=== PATIENT | female | born 1975 | race Caucasian/White ===

== ENCOUNTER → 2017-06-02 12:18 | Observation (INO) ==
[2017-06-02 11:25] LABS: Basophils # 0.1 K/mcL (0.0-0.2); Basophils % 0.7 %; Eosinophils # 0.1 K/mcL (0.0-0.6); Eosinophils % 0.7 %; Hematocrit 33.1 % (35.3-44.9); Hemoglobin 10.2 g/dL (11.5-15.4); Immature Granulocytes % 4.9 % (0-4); Lymphocytes # 1.6 K/mcL (0.6-4.6); Lymphocytes % 15.3 %; Mean Corpuscular HGB Conc 30.8 g/dL (31.6-35.5); Mean Corpuscular Hemoglobin 25.5 pg (28.0-33.3); Mean Corpuscular Volume 82.8 fL (83.0-100.0); Mean Platelet Volume 10.1 fL (9.4-12.4); Monocytes # 0.8 K/mcL (0.0-1.3); Monocytes % 7.1 %; Neutrophils # 7.7 K/mcL (1.6-8.9); Nucleated Red Blood Cells 0.3 /100 WBC (0); Platelet Count 307 K/mcL (140-400); Red Cell Distribution Width 18.3 % (11.5-14.5); Segmented Neutrophils % 71.3 %
[2017-06-02 11:44] LABS: Alanine Aminotransferase 9 Units/L (7-52); Aspartate Amino Transferase 15 Units/L (13-39); BUN/Creatinine Ratio 11 (6-26); Blood Urea Nitrogen 4 mg/dL (6-20); Lactate Dehydrogenase 142 Units/L (140-271); Uric Acid 4.3 mg/dL (2.3-7.6); eGFR For African Americans > 60 (> 60); eGFR For Non-African Americans > 60 (> 60)
--- NOTE | 2017-06-02 12:03 | OB/GYN Progress Note ---
Date of Encounter: 06/02/17 Time of Encounter: 12:01 - Assessment and Plan (1) 30 weeks gestation of Current Visit: Yes Status: Acute FHT reassiring for GA (2) Headache above the eye region Current Visit: Yes Status: Acute Headache has now resolved. PIH labs normal. BP normal. Discharge home with precautions. Subjective - Subjective Interval history: 41 year-old at 30w4d with c/o headache and nausea this am that has now resolved. She reports she took her blood pressure at work when she was feeling bad and it was 120's/101. She denies any contractions, leaking, bleeding or other complaints. Good FM. Antepartum ROS: movement normal, no loss of fluid, no vaginal bleeding, no contractions Objective - Vital Signs Vital Signs: Intake and Output 06/01/17 06/02/17 06/02/17 23:59 07:59 15:59 Other: Weight 72.2 kg Patient Weight 06/02/17 23:59 Weight 72.2 kg - Exam FHR: category 1 FHR comments: FHT reassuring for GA Auscultation: bilateral: normal Abdomen: Present: soft, gravid Uterus: Present: normal - Labs Labs: Abnormal lab results Hgb 10.2 g/dL (11.5-15.4) L 06/02/17 10:46 Hct 33.1 % (35.3-44.9) L 06/02/17 10:46 MCV 82.8 fL (83.0-100.0) L 06/02/17 10:46 MCH 25.5 pg (28.0-33.3) L 06/02/17 10:46 MCHC 30.8 g/dL (31.6-35.5) L 06/02/17 10:46 RDW 18.3 % (11.5-14.5) H 06/02/17 10:46 Immature Gran % 4.9 % (0-4) H 06/02/17 10:46 Nucleated RBCs/100 WBC 0.3 /100 WBC (0) H 06/02/17 10:46 BUN 4 mg/dL (6-20) L 06/02/17 10:46 Creatinine 0.35 mg/dL (0.60-1.20) L 06/02/17 10:46
[2017-06-02 12:09] LABS: Protein/Creatinine Ratio,Urine 0.55 mg/mg (0.00-0.20)
[2017-06-02 12:19] LABS: Amphetamine Screen,Urine Negative ng/mL (Cutoff=1000); Barbiturate Screen,Urine Negative ng/mL (Cutoff=200); Benzodiazepines Screen,Urine Negative ng/mL (Cutoff=200); Cannabinoid Screen,Urine Negative ng/mL (Cutoff = 50); Cocaine Screen,Urine Negative ng/mL (Cutoff= 300); Opiate Screen,Urine Negative ng/mL (Cutoff=300); Phencyclidine Screen,Urine Negative ng/mL (Cutoff=25)
== END | disposition home or self-care (01) ==
LOC: 1NENULAB
PROVIDERS: ADMIT Registered Nurse; ATTEND Registered Nurse

== ENCOUNTER 2017-07-29 14:40 | Inpatient (IN) ==
[2017-07-29] MEDS ORDERED: Ondansetron 4 MG/2 ML VIAL IVP PRN (14:50)
[2017-07-29] MEDS ORDERED: Metoclopramide 10 MG/2 ML VIAL IVP PRN (14:50)
[2017-07-29] MEDS ORDERED: Famotidine 20 MG/2 ML VIAL IVP PRN (14:50)
[2017-07-29] MEDS ORDERED: *HR* Nalbuphine 10 MG/ML AMPUL IVP PRN (14:50)
[2017-07-29] MEDS ORDERED: Naloxone 0.4 MG/ML INJ IVP PRN (14:50)
[2017-07-29] MEDS ORDERED: Oxytocin 20 units/ LR 1000 mL 20 UNIT/1,000 ML BAG IVC SCH ×2 (15:00→20:17)
[2017-07-29] MEDS ORDERED: Ringers Solution, Lactated 1,000 ML IVC SCH (15:00)
[2017-07-29 15:21] LABS: Basophils # 0.1 K/mcL (0.0-0.2); Basophils % 0.6 %; Eosinophils # 0.1 K/mcL (0.0-0.6); Eosinophils % 0.6 %; Hematocrit 33.7 % (35.3-44.9); Hemoglobin 10.6 g/dL (11.5-15.4); Immature Granulocytes % 3.1 % (0-4); Lymphocytes # 1.8 K/mcL (0.6-4.6); Lymphocytes % 16.9 %; Mean Corpuscular HGB Conc 31.5 g/dL (31.6-35.5); Mean Corpuscular Hemoglobin 25.9 pg (28.0-33.3); Mean Corpuscular Volume 82.2 fL (83.0-100.0); Mean Platelet Volume 11.5 fL (9.4-12.4); Monocytes # 0.9 K/mcL (0.0-1.3); Monocytes % 8.7 %; Neutrophils # 7.6 K/mcL (1.6-8.9); Nucleated Red Blood Cells 0.4 /100 WBC (0); Platelet Count 307 K/mcL (140-400); Red Cell Distribution Width 19.2 % (11.5-14.5); Segmented Neutrophils % 70.1 %
[2017-07-29 15:34] LABS: Amphetamine Screen,Urine Negative ng/mL (Cutoff=1000); Barbiturate Screen,Urine Negative ng/mL (Cutoff=200); Benzodiazepines Screen,Urine Negative ng/mL (Cutoff=200); Cannabinoid Screen,Urine Negative ng/mL (Cutoff = 50); Cocaine Screen,Urine Negative ng/mL (Cutoff= 300); Opiate Screen,Urine Negative ng/mL (Cutoff=300); Phencyclidine Screen,Urine Negative ng/mL (Cutoff=25)
[2017-07-29] MEDS ORDERED: EPHEDrine 50 MG/ML VIAL IVP PRN (16:14)
--- NOTE | 2017-07-29 16:14 | Anesthesia Evaluation PreOp ---
Date of Encounter: 07/29/17 Time of Encounter: 16:13 - Past History Planned Operation: OMAR Cardiac History: Denies any Significant Hx Pulmonary History: Denies Any Significant HX MERCHANDISING DIRECTOR History: Denies Any Significant HX Other Medical History: Denies Any Significant HX Anesthesia History: No Prior Anesthetic Complications, Past Anesthesia : Yes Alcohol Use: none Drug use: none Medications and Allergies Sertraline [Zoloft] 50 mg PO DAILY 01/09/15 [History] Vit #108/Iron/FA [ One Tablet] 1 each PO DAILY 04/14/17 [ History] 3 Allergy/AdvReac Type Severity Reaction Status Date / Time clindamycin Allergy Hives Verified 06/02/17 10:53 - Meds/Allergy Pre-op Review Medications Reviewed: Yes Allergies Reviewed: Yes Beta Blockers on Current Med List: No Anesthesia Results - Labs 07/29/17 14:58 Anesthesia Exam O2 Sat Height 1.52 m Weight 74.843 kg NPO (# of Hours): 4 Pain Scale: 2 Pain Scale Used: Numeric (1 - 10) - HEENT Pupil (Motor): Pupils equal Mallampati: II Teeth: Normal Oral Opening: Greater than 3 - MERCHANDISING DIRECTOR LOC: Oriented MERCHANDISING DIRECTOR Motor: Normal RUE, Normal LUE, Normal RLE, Normal LLE, Normal Face MERCHANDISING DIRECTOR Sensory: Normal: RUE, LUE, RLE, LLE, Face - Cardiac Rhythm: Regular Murmur: None JVD: No Carotid Bruit: No - Pulmonary Breath Sounds: bilateral Clear Respiratory Effort: Symmetrical Anesthesia Assess/Plan ASA Score: 2 Modified Ambrose Scale for Level of Consciousness: Cooperative, oriented, and tranquil Anesthetic Plan: General (plan b), Regional (plan a) Autologous Blood: Yes Monitoring Plan: Standard Monitors
[2017-07-29] MEDS ORDERED: Epidural Premix (fent/bupiv) 110 ML EP SCH (16:15)
--- NOTE | 2017-07-29 16:22 | OB/GYN History & Physical ---
Date of Encounter: 07/29/17 Time of Encounter: 16:20 Assessment and Plan (1) AMA (advanced maternal age) multigravida 35+ Current visit: Yes Status: Chronic Qualifiers: Trimester: third trimester Qualified Code(s): O09.523 - Supervision of elderly multigravida, third trimester (2) 38 weeks gestation of Current visit: Yes Status: Chronic History of Present Illness HPI: Ms. Staley is a 41 year old female Patient is 41-year-old 2 para 1 white female who came to the office today for evaluation. On evaluation she is noted to be 8 cm dilated 90% effaced and -1 station. She has been followed in our office without any significant problems. She reports active fetus. She denies spontaneous rupture membranes. She reports irregular contractions. Past Med Surg Social Fam HX - Past Medical History Medical history: no medical history Psychiatric history: anxiety, depression - Past Surgical History Surgical History: other Additional surgical history: Tonsillectomy, ankle surgery - Social History Smoking Status: Never smoker Alcohol use: none Drug use: none - Family History Mother Living Status: Still Living Hx Family Cardiac Disorders: No Hx Family Respiratory Disorders: No Hx Family Cancer: No Hx Family GI Disorders: No Hx Family Genitourinary Disorders: No Hx Family Endocrine Disorder: No Hx Family Musculoskeletal Disorders: No Hx Family Neuromuscular Disorders: No Hx Family Neurologic Disorders: No Hx Family HEENT Disorders: No Hx Family Autoimmune Disorders: No Hx Family Reproductive Disorders: No Hx Family Psychosocial Disorders: No Hx Family Medical Disorders: No Obstetrical History - Pregnancies : 2 Para: 1 Term: 1 Medications and Allergies Sertraline [Zoloft] 50 mg PO DAILY 01/09/15 [History] Vit #108/Iron/FA [ One Tablet] 1 each PO DAILY 04/14/17 [ History] 3 Allergy/AdvReac Type Severity Reaction Status Date / Time clindamycin Allergy Hives Verified 06/02/17 10:53 Review of System OB All systems PM: reviewed and no additional remarkable complaints except as stated - Genitourinary Genitourinary: amenorrhea - Menstruation Menstruation: amenorrhea Exam - Constitutional Constitutional: well developed, well nourished, no acute distress, average body habitus - HEENT HEENT: Normocephaly - Neck Neck exam: full ROM - Lungs Respiratory exam: CTAB - Cardiovascular Cardiovascular exam: RRR - Abdomen Abdomen: Present: gravid - Extremities Extremities exam: full ROM - Vagina Vagina: Present: normal moisture - Cervix Dilation: 8 Effacement: 90 Station: 0 - Uterus Uterus exam: Present: enlarged Results Result Diagrams: 07/29/17 14:58 Abnormal lab results Hgb 10.6 g/dL (11.5-15.4) L 07/29/17 14:58 Hct 33.7 % (35.3-44.9) L 07/29/17 14:58 MCV 82.2 fL (83.0-100.0) L 07/29/17 14:58 MCH 25.9 pg (28.0-33.3) L 07/29/17 14:58 MCHC 31.5 g/dL (31.6-35.5) L 07/29/17 14:58 RDW 19.2 % (11.5-14.5) H 07/29/17 14:58 Nucleated RBCs/100 WBC 0.4 /100 WBC (0) H 07/29/17 14:58 All other labs normal. - VTE Reasons for not Prescribing Prophylaxis: Treatment not Indicated - Low risk for VTE - Attending Attestation KARMEN LEMUS MD FACOG
--- NOTE | 2017-07-29 17:08 | OB/GYN Progress Note ---
Date of Encounter: 07/29/17 Time of Encounter: 17:06 - Assessment and Plan (1) AMA (advanced maternal age) multigravida 35+ Current Visit: Yes Status: Chronic Qualifiers: Trimester: third trimester Qualified Code(s): O09.523 - Supervision of elderly multigravida, third trimester (2) 38 weeks gestation of Current Visit: Yes Status: Chronic (3) Meconium in amniotic fluid Current Visit: Yes Status: Acute Subjective - Subjective Interval history: AROM / light mec Objective - Vital Signs Vital Signs: Intake and Output 07/29/17 07/29/17 07/29/17 07:59 15:59 23:59 Other: Weight 74.843 kg Patient Weight 07/29/17 23:59 Weight 74.843 kg - Exam FHR: category 1 Abdomen: Present: soft, gravid Cervical dilation: 9 Cervix effacement: 90 station: 0 - Labs Labs: Abnormal lab results Hgb 10.6 g/dL (11.5-15.4) L 07/29/17 14:58 Hct 33.7 % (35.3-44.9) L 07/29/17 14:58 MCV 82.2 fL (83.0-100.0) L 07/29/17 14:58 MCH 25.9 pg (28.0-33.3) L 07/29/17 14:58 MCHC 31.5 g/dL (31.6-35.5) L 07/29/17 14:58 RDW 19.2 % (11.5-14.5) H 07/29/17 14:58 Nucleated RBCs/100 WBC 0.4 /100 WBC (0) H 07/29/17 14:58
[2017-07-29] MEDS ORDERED: Silver Nitrate Applicator 1 STICK..EA. TP ONE (18:04)
--- NOTE | 2017-07-29 18:14 | OB/GYN Procedure Note ---
Delivery - Delivery Date: 07/29/17 Provider: Hebert Jimenez Delivery induction: none Delivery augmentation: rupture of membranes Delivery monitor: external FHT, external uterine Quantitated Blood Loss: 100 - Infant (s) A Infant Delivery Date: 07/29/17 Delivery Time: 17:55 Presentation: vertex Position: OA Route of delivery: Gender: Female Viability: Viable Pounds: 6 Ounces: 15 Weight Gram: 3145 kg at 1 minute: 8 at 5 mins: 9 Shoulder Dystocia: not encountered Specimens collected: cord blood Placenta: spontaneous - Repair Episiotomy: none Laceration Description: None - Complications Delivery complications: none - Disposition Mom disposition: stable in LDR disposition: stable in LDR - Comments Comments: Patient progressed to complete and on the perineum and delivered a live female weighing 6 lbs. 15 oz. over an intact perineum. Placenta delivered intact. Apgars were 8 and 9. Estimated blood loss was 100 mL. Delivery time was 1755.
[2017-07-29] MEDS ORDERED: Benzocaine/Menthol 56 GM AEROSOL SPRAY TP PRN (20:17)
[2017-07-29] MEDS ORDERED: Acetaminophen 325 MG TABLET PO PRN (20:17)
[2017-07-29] MEDS ORDERED: Rho Immune Globulin 1,500 UNIT SYRINGE IM PRN (20:17)
[2017-07-29] MEDS ORDERED: Lanolin 28 GM TUBE TP PRN (20:17)
[2017-07-29] MEDS: Ibuprofen 600 MG TABLET PO PRN (20:59)
[2017-07-30] MEDS: Ibuprofen 600 MG TABLET PO PRN ×3 (03:07→15:08)
[2017-07-30 04:49] LABS: Basophils # 0.1 K/mcL (0.0-0.2); Basophils % 0.3 %; Eosinophils # 0.1 K/mcL (0.0-0.6); Eosinophils % 0.3 %; Hematocrit 30.4 % (35.3-44.9); Hemoglobin 9.6 g/dL (11.5-15.4); Immature Granulocytes % 1.8 % (0-4); Lymphocytes # 2.2 K/mcL (0.6-4.6); Lymphocytes % 14.8 %; Mean Corpuscular HGB Conc 31.6 g/dL (31.6-35.5); Mean Corpuscular Hemoglobin 25.9 pg (28.0-33.3); Mean Corpuscular Volume 81.9 fL (83.0-100.0); Mean Platelet Volume 10.9 fL (9.4-12.4); Monocytes # 1.3 K/mcL (0.0-1.3); Monocytes % 8.5 %; Platelet Count 241 K/mcL (140-400); Red Blood Count 3.71 M/mcL (3.82-4.97); Segmented Neutrophils % 74.3 %
[2017-07-30] MEDS ORDERED: Prenatal Vit/FA 1 EACH TABLET PO SCH (09:00)
--- NOTE | 2017-07-30 09:27 | Discharge Summary ---
Date of Encounter: 07/30/17 Time of Encounter: 09:24 - Discharge Diagnosis (1) Vaginal delivery Priority: Primary Status: Acute Comments: Doing well. Ambulating and voiding without difficulty. Tolerating regular diet. Mild cramping, pain well controlled with Ibuprofen. Lochia light and without clots. Infant in arms, states baby without difficulty. Desires to be discharged today. - Discharge Medications Prescriptions: Ibuprofen [Motrin] 600 mg PO Q6HR PRN #30 tablet PRN Reason: Cramping Docusate [Colace] 100 mg PO BID #20 capsule Home Medications: Sertraline [Zoloft] 50 mg PO DAILY 01/09/15 [History] Vit #108/Iron/FA [ One Tablet] 1 each PO DAILY 04/14/17 [ History] Acetaminophen [Tylenol] 650 mg PO Q6HR PRN tablet 07/30/17 [Rx] Docusate [Colace] 100 mg PO BID #20 capsule 07/30/17 [Rx] Ibuprofen [Motrin] 600 mg PO Q6HR PRN #30 tablet 07/30/17 [Rx] Vit/FA 1 each PO DAILY tablet 07/30/17 [Rx] Sertraline [Zoloft] 50 mg PO DAILY tablet 07/30/17 [Rx] Allergies/Adverse Reactions: 3 Allergy/AdvReac Type Severity Reaction Status Date / Time clindamycin Allergy Hives Verified 06/02/17 10:53 Data Procedures and tests throughout hospitalization: Laboratory Tests 07/29/17 07/29/17 07/30/17 14:58 14:58 04:05 WBC 10.8 14.8 H RBC 4.10 3.71 L Hgb 10.6 L 9.6 L Hct 33.7 L 30.4 L MCV 82.2 L 81.9 L MCH 25.9 L 25.9 L MCHC 31.5 L 31.6 RDW 19.2 H 19.0 H Plt Count 307 241 MPV 11.5 10.9 Immature Gran % 3.1 1.8 Seg Neutrophils % 70.1 74.3 Lymphocytes % 16.9 14.8 Monocytes % 8.7 8.5 Eosinophils % 0.6 0.3 Basophils % 0.6 0.3 Neutrophils # 7.6 11.0 H Lymphocytes # 1.8 2.2 Monocytes # 0.9 1.3 Eosinophils # 0.1 0.1 Basophils # 0.1 0.1 Nucleated RBCs/100 WBC 0.4 H Urine Opiates Screen Negative Ur Barbiturates Screen Negative Ur Phencyclidine Scrn Negative Ur Amphetamines Screen Negative U Benzodiazepines Scrn Negative Urine Cocaine Screen Negative U Marijuana (THC) Screen Negative Labs on day of discharge: Labs from last 24 hours 07/30/17 07/29/17 07/29/17 04:05 14:58 14:58 WBC 14.8 H 10.8 RBC 3.71 L 4.10 Hgb 9.6 L 10.6 L Hct 30.4 L 33.7 L MCV 81.9 L 82.2 L MCH 25.9 L 25.9 L MCHC 31.6 31.5 L RDW 19.0 H 19.2 H Plt Count 241 307 MPV 10.9 11.5 Immature Gran % 1.8 3.1 Seg Neutrophils % 74.3 70.1 Lymphocytes % 14.8 16.9 Monocytes % 8.5 8.7 Eosinophils % 0.3 0.6 Basophils % 0.3 0.6 Neutrophils # 11.0 H 7.6 Lymphocytes # 2.2 1.8 Monocytes # 1.3 0.9 Eosinophils # 0.1 0.1 Basophils # 0.1 0.1 Nucleated RBCs/100 WBC 0.4 H Urine Opiates Screen Negative Ur Barbiturates Screen Negative Ur Phencyclidine Scrn Negative Ur Amphetamines Screen Negative U Benzodiazepines Scrn Negative Urine Cocaine Screen Negative U Marijuana (THC) Screen Negative Date of admission: 07/29/17 14:40 Primary care physician: Zeenat Hernández CNP Consults: 07/29/17 20:17 Consult to Software Sales Manager [CONS] Routine Comment: Vaginal delivery, consult needed Discharging clinician: Na Serrato - Patient Status Disposition: Home, Self-Care Condition: Good Functional capacity at discharge: independent ambulation Overall status at discharge: patient is progressing back to baseline - Discharge Instructions Follow Up With: Zeenat Hernándze CNP [Primary Care Provider] - Hebert Jimenez MD [Partnered Physician] - - Diet and Activity Activity: increase activity as tolerated Diet: advance to your usual diet Hospital Course Reason for admission: active labor, IUP at term Delivery: Episiotomy: none Laceration: none Other procedures: none complications: none Discharge diagnosis: IUP at term delivered baby: female Time spent discussing smoking cessation with patient: 3 to 10 minutes Time Attestation: Total time spent providing and/or coordinating discharge services: Time Spent: Less than 30 minutes Exam - Constitutional Vitals: Temp Pulse Resp BP Pulse Ox 97.8 F 78 16 107/68 98 07/30/17 08:24 07/30/17 08:24 07/30/17 08:24 07/30/17 08:24 07/30/17 08:24 General appearance IM: cooperative, A&O X 3, pleasant, answers questions appropriately - Respiratory Respiratory exam: Present: CTAB - Cardiovascular Cardiovascular exam IM: Present: RRR - GI/Abdominal GI/Abdominal exam IM: normal bowel sounds - Rectal Rectal exam: deferred - Uterine Tone: Firm Uterus Position: At Umbilicus, Midline - Extremities Exam Extremities exam IM: Present: full ROM, normal inspection, radial pulses palpable and symmetrical - Neurological Exam Neurological exam: alert, normal gait, oriented X3
[2017-07-30 16:24] VITALS: BP 109/64
== END 2017-07-30 19:15 | disposition home or self-care (01) | DRG 775 ==
LOC: 1NENULAB → OBSVTOIN 14:40 → 1NENUOBS 20:28
PROVIDERS: ADMIT Obstetrics & Gynecology; ATTEND Obstetrics & Gynecology